=== PATIENT | female | born 1975 | race Caucasian/White ===

== ENCOUNTER 2017-01-01 15:52 | Emergency (ER) | payer OTHER ==
[2017-01-01 16:10] VITALS: BP 106/73; PULSE 68; RESP 18; TEMP 98.3; O2SAT 100
--- NOTE | 2017-01-01 17:27 | CT ---
PROCEDURE: CT HEAD WITHOUT CONTRAST. HISTORY: trauma COMPARISON: None available. TECHNIQUE: Axial computed tomography images were obtained through the head/brain without intravenous contrast. Radiation dose: Total exam DLP = 832.76 mGy-cm. This CT exam was performed using one or more of the following dose reduction techniques: Automated exposure control, adjustment of the mA and/or kV according to patient size, and/or use of iterative reconstruction technique. FINDINGS: HEMORRHAGE: No intracranial hemorrhage. BRAIN: No mass effect or edema. No atrophy or chronic microvascular ischemic changes. VENTRICLES: No hydrocephalus. CALVARIUM: Unremarkable. PARANASAL SINUSES: Unremarkable as visualized. No significant inflammatory changes. MASTOID AIR CELLS: Unremarkable as visualized. No inflammatory changes. OTHER FINDINGS: None. IMPRESSION: No acute intracranial pathology identified.
--- NOTE | 2017-01-01 17:42 | RAD ---
PROCEDURE: Radiographs of the Lumbar Spine. HISTORY: trauma COMPARISON: None available. FINDINGS: BONES: Alignment appears satisfactory. No listhesis. No acute displaced fracture identified. DISC SPACES: Unremarkable. OTHER FINDINGS: None. IMPRESSION: No acute displaced fracture or subluxation identified.
--- NOTE | 2017-01-01 17:49 | ED PDOC ---
HPI: Back Time Seen by Provider: 01/01/17 16:31 Chief Complaint (Nursing): Back Pain Chief Complaint (Provider): Back Pain History Per: Patient History/Exam Limitations: no limitations Onset/Duration Of Symptoms: Days (x1) Additional Complaint(s): Amanda Rm, 41 year old female presents to the ED on 01/01/17 after falling 1 day prior to arrival. The patient states that she slipped and fell, and then landed in a sitting position, falling on her back. The patient is uncertain if she hit her head and lost consciousness for "2 seconds". She currently complains of non-radiating neck pain as well as upper and lower back pain. Past Medical History Reviewed: Historical Data, Nursing Documentation, Vital Signs Vital Signs: Last Vital Signs Temp 98.3 F 01/01/17 16:08 Pulse 68 01/01/17 16:08 Resp 18 01/01/17 16:08 BP 106/73 01/01/17 16:08 Pulse Ox 100 01/01/17 16:08 - Medical History PMH: No Chronic Diseases - Family History Family History: States: Unknown Family Hx - Home Medications Home Medications: Ambulatory Orders Medication Instructions Recorded Dicyclomine [Bentyl] 20 mg PO BID #14 tab 09/13/15 Ondansetron [Zofran] 4 mg PO Q8H #24 tab 09/13/15 - Allergies Allergies/Adverse Reactions: Allergies Allergy/AdvReac Type Severity Reaction Status Date / Time No Known Allergies Allergy Verified 09/13/15 16:40 Review of Systems Musculoskeletal: Positive for: Neck Pain, Back Pain (upper and lower) Physical Exam - Reviewed Nursing Documentation Reviewed: Yes Vital Signs Reviewed: Yes - Physical Exam Appears: Positive for: Non-toxic, No Acute Distress Head Exam: Positive for: ATRAUMATIC, NORMOCEPHALIC Skin: Positive for: Normal Color, Warm, Dry Eye Exam: Positive for: Normal appearance ENT: Positive for: Normal ENT Inspection Neck: Positive for: Normal Cardiovascular/Chest: Positive for: Regular Rate, Rhythm, Chest Non Tender Respiratory: Positive for: Normal Breath Sounds. Negative for: Respiratory Distress Gastrointestinal/Abdominal: Positive for: Normal Exam, Soft. Negative for: Tenderness Back: Positive for: Normal Inspection Extremity: Positive for: Normal ROM. Negative for: Deformity Neurologic/Psych: Positive for: Alert, Oriented (x3) - ECG O2 Sat by Pulse Oximetry: 100 (RA) Pulse Ox Interpretation: Normal - Radiology X-Ray: Interpreted by Me (C-spine, thoracic, LS spine x-ray) X-Ray Interpretation: No Acute Disease - Progress ED Course And Treament: CT head w/o contrast: negative Medical Decision Making Medical Decision Makin:31 Initial Impression: Headache Initial Plan: * CT Head w/o Contrast Stat * ED Urine (POC) Stat * Tylenol 325 mg tab 650 mg PO STAT * Cervical Spine AP & Lateral [RAD] Stat * Dorsal (Thoracic) Spine [RAD] Stat * LS Spine AP/LAT [RAD] Stat * Reevaluation Scribe Attestation: Documented by Mel Paez, acting as a scribe for Delgado Bautista PA-C. Provider Scribe Attestation: All medical record entries made by the Scribe were at my direction and personally dictated by me. I have reviewed the chart and agree that the record accurately reflects my personal performance of the history, physical exam, medical decision making, and the department course for this patient. I have also personally directed, reviewed, and agree with the discharge instructions and disposition. Disposition - Clinical Impression Clinical Impression: Head injury - Patient ED Disposition Is Patient to be Admitted: No - Disposition Referrals: Maximus Aquino MD [Staff Provider] - Disposition: Routine/Home Disposition Time: 18:25 Condition: STABLE Additional Instructions: Take Tylenol at home for headache. Drink plenty of fluids. Follow up with Dr. Aquino, nuerologist, for further evaluation. Instructions: Head Injury (ED), Back Pain (ED) Print Language: NICARAGUAN
--- NOTE | 2017-03-04 12:05 | RAD ---
HISTORY: MD ORDER No relevant clinical information provided. COMPARISON: No prior. FINDINGS: BONES: Alignment maintained. No fracture. DISC SPACES: Normal. SOFT TISSUES: Normal. OTHER FINDINGS: None. IMPRESSION: No significant or acute findings to account for/ related to the clinical presentation.
--- NOTE | 2017-03-04 12:06 | RAD ---
PROCEDURE: Cervical Spine Radiographs. HISTORY: Pain. No history of recent/ related trauma provided COMPARISON: None. FINDINGS: BONES: Alignment maintained. No fracture. Dens Intact. DISC SPACES: Normal. SOFT TISSUES: Normal. No prevertebral soft tissue swelling. OTHER FINDINGS: None. IMPRESSION: Unremarkable cervical spine radiographs
== END 2017-01-01 18:40 | disposition home or self-care (01) ==
LOC: H.ER 15:52
DX: S09.90XA Unspecified injury of head, initial encounter (principal); M54.2 Cervicalgia; M54.5 Low back pain; W01.0XXA Fall on same level from slipping, tripping and stumbling without subsequent striking against object, initial encounter; Y92.89 Other specified places as the place of occurrence of the external cause

== ENCOUNTER 2018-02-04 23:10 | Emergency (ER) | payer SELFPAY ==
[2018-02-04 23:24] VITALS: BP 129/79; PULSE 87; RESP 16; TEMP 98; O2SAT 100
--- NOTE | 2018-02-04 23:39 | ED PDOC ---
HPI: Female Pain Chief Complaint (Provider): Suprapubic pain, burning on urination History Per: Patient History/Exam Limitations: no limitations Onset/Duration Of Symptoms: Hrs Current Symptoms Are (Timing): Still Present Additional Complaint(s): 42 yo female with no medical problems presents with dysuria x 12 hours with suprapubic fullness. No radiation of "fullness"/pain. PT denies fever/chills. No N/V. Denies back pain. PT without similar in the past. <Kamryn Lynn - Last Filed: 02/04/18 23:37> <Melvin Glasgow - Last Filed: 02/07/18 19:28> Time Seen by Provider: 02/04/18 23:12 Chief Complaint (Nursing): Fever Past Medical History Reviewed: Historical Data, Nursing Documentation, Vital Signs Vital Signs: Last Vital Signs Temp 98.0 F 02/04/18 23:12 Pulse 87 02/04/18 23:12 Resp 16 02/04/18 23:12 BP 129/79 02/04/18 23:12 Pulse Ox 100 02/04/18 23:12 - Medical History PMH: No Chronic Diseases - Family History Family History: States: Unknown Family Hx <Kamryn Lynn - Last Filed: 02/04/18 23:37> Vital Signs: Last Vital Signs Temp 98.0 F 02/04/18 23:12 Pulse 87 02/04/18 23:55 Resp 16 02/04/18 23:12 BP 129/79 02/04/18 23:55 Pulse Ox 100 02/04/18 23:40 <Melvin Glasgow - Last Filed: 02/07/18 19:28> - Home Medications Home Medications: Ambulatory Orders Medication Instructions Recorded Dicyclomine [Bentyl] 20 mg PO BID #14 tab 09/13/15 Ondansetron [Zofran] 4 mg PO Q8H #24 tab 09/13/15 Ciprofloxacin [Cipro] 500 mg PO BID #10 tab 02/04/18 - Allergies Allergies/Adverse Reactions: Allergies Allergy/AdvReac Type Severity Reaction Status Date / Time No Known Allergies Allergy Verified 09/13/15 16:40 Review of Systems ROS Statement: Except As Marked, All Systems Reviewed And Found Negative Constitutional: Negative for: Fever, Chills Gastrointestinal: Negative for: Nausea, Vomiting Genitourinary Female: Positive for: Dysuria, Pelvic Pain <Kamryn Lynn - Last Filed: 02/04/18 23:37> Physical Exam - Reviewed Nursing Documentation Reviewed: Yes Vital Signs Reviewed: Yes - Physical Exam Appears: Positive for: Well, Non-toxic, No Acute Distress Head Exam: Positive for: ATRAUMATIC, NORMAL INSPECTION, NORMOCEPHALIC Skin: Positive for: Normal Color, Warm, DRY Eye Exam: Positive for: Normal appearance ENT: Positive for: Normal ENT Inspection Neck: Positive for: Normal, Painless ROM Cardiovascular/Chest: Positive for: Regular Rate, Rhythm Respiratory: Positive for: Normal Breath Sounds. Negative for: Accessory Muscle Use, Respiratory Distress Gastrointestinal/Abdominal: Positive for: Normal Exam, Soft. Negative for: Tenderness Back: Positive for: Normal Inspection. Negative for: L CVA Tenderness, R CVA Tenderness Extremity: Positive for: Normal ROM Neurologic/Psych: Positive for: Alert, Oriented <Kamryn Lynn - Last Filed: 02/04/18 23:37> - ECG O2 Sat by Pulse Oximetry: 100 <Kamryn Lynn - Last Filed: 02/04/18 23:37> Medical Decision Making Medical Decision Making: (+) leuks, (+) nitrites on urine dip <Kamryn Lynn - Last Filed: 02/04/18 23:37> Disposition - Patient ED Disposition Is Patient to be Admitted: No Counseled Patient/Family Regarding: Diagnosis, Need For Followup, Rx Given - Disposition Disposition: Routine/Home Disposition Time: 23:37 <Kamryn Lynn - Last Filed: 02/04/18 23:37> <Melvin Glasgow - Last Filed: 02/07/18 19:28> - Clinical Impression Clinical Impression: UTI (urinary tract infection) - Disposition Condition: GOOD Prescriptions: Ciprofloxacin [Cipro] 500 mg PO BID #10 tab Instructions: Urinary Tract Infections in Adults Forms: [employer] (Telugu)
[2018-02-04 23:58] LABS: SQUAMOUS EPITHIAL 3 /hpf (0-5); URINE BACTERIA OCC (<OCC); URINE BILIRUBIN NEGATIVE (NEGATIVE); URINE BLOOD LARGE (NEGATIVE); URINE CLARITY TURBID (Clear); URINE COLOR YELLOW (YELLOW); URINE GLUCOSE (UA) NEG (Normal); URINE LEUKOCYTE ESTERASE LARGE Leu/uL (Negative); URINE PROTEIN >=500 mg/dL (NEGATIVE); URINE UROBILINOGEN 0.2-1.0 mg/dL (0.2-1.0); WBC CLUMPS MANY /hpf
== END 2018-02-04 23:55 | disposition home or self-care (01) ==
LOC: H.ER 23:10
DX: N39.0 Urinary tract infection, site not specified (principal)

== ENCOUNTER 2018-03-20 17:44 | Emergency (ER) | payer SELFPAY ==
[2018-03-20 17:50] VITALS: BP 130/82; PULSE 78; RESP 18; TEMP 98; O2SAT 100
[2018-03-20] MEDS ORDERED: Naproxen 500 MG TAB PO ONE ×2 (18:01→18:32)
--- NOTE | 2018-03-20 19:32 | ED PDOC ---
HPI: Trauma/Fall - HPI Time Seen by Provider: 03/20/18 17:51 Chief Complaint (Nursing): Trauma Chief Complaint (Provider): Trauma History Per: Patient History/Exam Limitations: no limitations Onset/Duration Of Symptoms: Days Additional Complaint(s): 42 year old female presents to ED complaining of injury to the right 4th toe, neck and lower back 2 weeks ago. States she tripped and fell. Denies head injury , loss of consciousness, numbness or tingling. PMD: No Family Provider Past Medical History Reviewed: Historical Data, Nursing Documentation, Vital Signs Vital Signs: Last Vital Signs Temp 98.0 F 03/20/18 17:48 Pulse 78 03/20/18 17:48 Resp 18 03/20/18 17:48 BP 130/82 03/20/18 17:48 Pulse Ox 100 03/20/18 17:48 - Medical History PMH: No Chronic Diseases - Surgical History Surgical History: No Surg Hx - Family History Family History: States: Unknown Family Hx - Social History Current smoker - smoking cessation education provided: No Drugs: Denies - Home Medications Home Medications: Ambulatory Orders Medication Instructions Recorded Dicyclomine [Bentyl] 20 mg PO BID #14 tab 09/13/15 Ondansetron [Zofran] 4 mg PO Q8H #24 tab 09/13/15 Ciprofloxacin [Cipro] 500 mg PO BID #10 tab 02/04/18 Naproxen [Naprosyn] 500 mg PO BID PRN #10 tab 03/20/18 - Allergies Allergies/Adverse Reactions: Allergies Allergy/AdvReac Type Severity Reaction Status Date / Time No Known Allergies Allergy Verified 03/20/18 17:48 Review of Systems ROS Statement: Except As Marked, All Systems Reviewed And Found Negative Musculoskeletal: Positive for: Neck Pain, Back Pain, Foot Pain (right 4th toe) Neurological: Negative for: Headache, Other (LOC, head injury) Physical Exam - Reviewed Nursing Documentation Reviewed: Yes Vital Signs Reviewed: Yes - Physical Exam Appears: Positive for: Non-toxic, No Acute Distress Head Exam: Positive for: ATRAUMATIC, NORMAL INSPECTION, NORMOCEPHALIC Skin: Positive for: Normal Color, Warm, Dry Eye Exam: Positive for: Normal appearance Pulses-Dorsalis Pedis (R): 2+ Back: Positive for: Normal Inspection, Other (bilateral paraspinal tenderness, paracervical tenderness, no midline tenderness). Negative for: L CVA Tenderness , R CVA Tenderness Extremity: Positive for: Normal ROM, Tenderness (mild, right 4th toe), Capillary Refill (less than 2 seconds). Negative for: Swelling Neurologic/Psych: Positive for: Alert, Oriented (x3) - ECG O2 Sat by Pulse Oximetry: 100 (RA) Pulse Ox Interpretation: Normal - Progress ED Course And Treament: C-spine, LS spine x-ray: no fx R 4th toe: non-displaced fx at distal phalanx without displacement or dislocation. Pt. evaluated by [facility] podiatry resident, in ED who eva taped pt. and made f/u arrangements with podiatry clinic. Medical Decision Making Medical Decision Making: Time: 1800 Initial Impression: neck pain, back pain, right toe injury Initial Plan: -- ED Urine --Naproxen 500mg --Cervical Spine AP and Lateral [RAD] --Food Right 4th Digit [RAD] --LS Spine AP/LAT [RAD] Scribe Attestation: Documented by Saida Nogueira, acting as a scribe for Delgado Bautista PA-C. Provider Scribe Attestation: All medical record entries made by the Scribe were at my direction and personally dictated by me. I have reviewed the chart and agree that the record accurately reflects my personal performance of the history, physical exam, medical decision making, and the department course for this patient. I have also personally directed, reviewed, and agree with the discharge instructions and disposition. Disposition - Clinical Impression Clinical Impression: Toe fracture, Cervical sprain, Low back pain - Patient ED Disposition Is Patient to be Admitted: No - Disposition Referrals: Podiatry Clinic [Outside] Disposition: Routine/Home Disposition Time: 20:15 Condition: STABLE Additional Instructions: ARNOLDO LUCAS, thank you for letting us take care of you today. Your provider was Thuy Barnes MD and you were treated for BACK PAIN, RT TOE PAIN. The emergency medical care you received today was directed at your acute symptoms. If you were prescribed any medication, please fill it and take as directed. It may take several days for your symptoms to resolve. Return to the Emergency Department if your symptoms worsen, do not improve, or if you have any other problems. Please contact your doctor or call one of the physicians/clinics you have been referred to that are listed on the Patient Visit Information form that is included in your discharge packet. Bring any paperwork you were given at discharge with you along with any medications you are taking to your follow up visit. Our treatment cannot replace ongoing medical care by a primary care provider outside of the emergency department. Thank you for allowing the [facility] team to be part of your care today. If you had an X-Ray or CT scan: A Radiologist will review the ED reading if any change in treatment is needed we will contact you. If you had a blood, urine, or wound culture: It will take several days for the results, if any change in treatment is needed we will contact you. If you had an STI test: It will take 48 hours for the results. Please call after 1 week if you have not heard back. Prescriptions: Naproxen [Naprosyn] 500 mg PO BID PRN #10 tab PRN Reason: Pain Instructions: Low Back Pain (DC), Toe Fracture (DC), Cervical Muscle Strain ( DC) Forms: [employer] (Niuean) Print Language: BURUNDIAN
--- NOTE | 2018-03-20 19:35 | CP.PCM.CON ---
History of Present Illness - History of Present Illness History of Present Illness: Podiatry Consult Note - Dr. Yi 42F unremarkable PMHx seen and examined in ED regarding pain in right 4th digit. Patient states approximately 2 weeks ago she tripped and fell, injuring her 4th toe. Patient states she has been able to walk since the injury, though with difficulty. Patient c/o persistent swelling in left 4th digit. Admits to soaking and massaging her digit as prior treatment though has not found relief of symptoms. Denies N/V/F/D/C/SOB. Review of Systems - Review of Systems All systems: reviewed and no additional remarkable complaints except (as per HPI ) Past Patient History - Infectious Disease Hx of Infectious Diseases: None - Past Social History Drugs: Denies - PSYCHIATRIC Hx Substance Use: No - SURGICAL HISTORY Hx Surgeries: No - ANESTHESIA Hx Anesthesia: No Meds Home Medications: Home Medication List Medication Instructions Recorded Confirmed Type Naproxen [Naprosyn] 500 mg PO BID PRN #10 tab 03/20/18 Rx Allergies/Adverse Reactions: Allergies Allergy/AdvReac Type Severity Reaction Status Date / Time No Known Allergies Allergy Verified 03/20/18 17:48 Physical Exam - Constitutional Appears: Well, Non-toxic, No Acute Distress - Extremities Exam Additional comments: RLE focused physical exam: VASC: DP/PT pulses palpable 2/4. CFT <3 seconds to all digits x5. Temperature gradient cool to cool. Nonpitting edema noted to 4th digit. Pedal hair appreciated. NEURO: Gross sensation intact. DERM: No open lesions present. No erythema noted. ORTHO: Pain on palpation 4th digit, pain upon ROM 4th digit DIPJ, PIPJ. No pain upon 4th MPJ. Digital ROM present. - Neurological Exam Neurological exam: Alert, Oriented x3 - Psychiatric Exam Psychiatric exam: Normal Affect, Normal Mood Results - Vital Signs Recent Vital Signs: Last Vital Signs Temp 98.0 F 03/20/18 17:48 Pulse 78 03/20/18 17:48 Resp 18 03/20/18 17:48 BP 130/82 03/20/18 17:48 Pulse Ox 100 03/20/18 19:33 Assessment & Plan - Assessment and Plan (Free Text) Assessment: 42F with incomplete 4th middle phalanx fracture Plan: Patient seen and examined Discussed with attending, Dr. Yi Right foot XR reviewed: incomplete fracture of 4th middle phalanx 4th and 3rd digits eva splinted with coban Surgical shoe dispensed - patient to be WBAT in surgical shoe Advised patient to keep dressing clean/dry/intact until follow up appointment Recommend RICE therapy Advised patient to take OTC extra strength Tylenol PRN pain Patient to follow up in Dr. Yi's office or podiatry clinic in 1 week Stable for dc per podiatry Thank you for the consult
--- NOTE | 2018-03-21 15:59 | RAD ---
Date of service: 03/20/2018 PROCEDURE: Radiographs of the Lumbar Spine. HISTORY: trauma COMPARISON: No prior. FINDINGS: BONES: Normal alignment. No listhesis. No fracture. DISC SPACES: Unremarkable. OTHER FINDINGS: None. IMPRESSION: Unremarkable radiographs of the lumbar spine.
--- NOTE | 2018-03-21 16:00 | RAD ---
Date of service: 03/20/2018 PROCEDURE: Cervical Spine Radiographs. HISTORY: Pain. COMPARISON: None. FINDINGS: BONES: Alignment maintained. No fracture. Dens Intact. DISC SPACES: Normal. SOFT TISSUES: Normal. No prevertebral soft tissue swelling. OTHER FINDINGS: None. IMPRESSION: Normal cervical spine radiographs
--- NOTE | 2018-03-21 16:07 | RAD ---
Date of service: 03/20/2018 PROCEDURE: Right foot HISTORY: trauma COMPARISON: Not available TECHNIQUE: Three views of right foot FINDINGS: Nondisplaced oblique fracture 4th middle phalanx, likely intra-articular golfing the proximal interphalangeal joint. No other fracture identified. Remaining joint spaces and articular surfaces are preserved. IMPRESSION: Nondisplaced oblique fracture 4th middle phalanx.
== END 2018-03-20 20:32 | disposition home or self-care (01) ==
LOC: H.ER 17:44
DX: S92.524A Nondisplaced fracture of middle phalanx of right lesser toe(s), initial encounter for closed fracture (principal); S13.4XXA Sprain of ligaments of cervical spine, initial encounter; M54.5 Low back pain; W01.0XXA Fall on same level from slipping, tripping and stumbling without subsequent striking against object, initial encounter

== ENCOUNTER 2018-05-10 20:15 | Emergency (ER) | payer OTHER ==
[2018-05-10 21:04] VITALS: BP 111/79; PULSE 85; RESP 16; TEMP 98.6; O2SAT 100
--- NOTE | 2018-05-10 21:19 | ED PDOC ---
HPI: Female Pain Time Seen by Provider: 05/10/18 21:05 Chief Complaint (Nursing): Female Genitourinary Chief Complaint (Provider): Dysuria History Per: Patient History/Exam Limitations: no limitations Onset/Duration Of Symptoms: Hrs (x6) Current Symptoms Are (Timing): Still Present Additional Complaint(s): Amanda Rm, a 42 year old female with past medical history of UTI, presents to the emergency department with dysuria onset 1500 today. Patient reports blood in urine. She states symptoms are similar to those she had with previous UTI, last one being 4 months ago. She has not taken medication. Patient denies frequency, fever, chills, vomiting, back pain. Last menstrual period was May 30. PMD: Steven Panda Past Medical History Reviewed: Historical Data, Nursing Documentation, Vital Signs Vital Signs: Last Vital Signs Temp 98.6 F 05/10/18 21:02 Pulse 85 05/10/18 21:02 Resp 16 05/10/18 21:02 BP 111/79 05/10/18 21:02 Pulse Ox 100 05/10/18 21:02 - Medical History PMH: No Chronic Diseases - Surgical History Surgical History: No Surg Hx - Family History Family History: States: Unknown Family Hx - Social History Current smoker - smoking cessation education provided: No Alcohol: None - Home Medications Home Medications: Ambulatory Orders Medication Instructions Recorded Dicyclomine [Bentyl] 20 mg PO BID #14 tab 09/13/15 Ondansetron [Zofran] 4 mg PO Q8H #24 tab 09/13/15 Ciprofloxacin [Cipro] 500 mg PO BID #10 tab 02/04/18 Naproxen [Naprosyn] 500 mg PO BID PRN #10 tab 03/20/18 Nitrofurantoin Macrocrystals 100 mg PO BID #14 cap 05/10/18 [Macrobid] Phenazopyridine [Pyridium] 200 mg PO BID PRN #4 tab 05/10/18 - Allergies Allergies/Adverse Reactions: Allergies Allergy/AdvReac Type Severity Reaction Status Date / Time No Known Allergies Allergy Verified 05/10/18 21:01 Review of Systems ROS Statement: Except As Marked, All Systems Reviewed And Found Negative Constitutional: Negative for: Fever, Chills Gastrointestinal: Negative for: Vomiting Genitourinary Female: Positive for: Dysuria, Hematuria. Negative for: Frequency Physical Exam - Reviewed Nursing Documentation Reviewed: Yes Vital Signs Reviewed: Yes - Physical Exam Comments: GENERAL APPEARANCE: Patient is awake, alert, oriented x 3, in no acute distress. SKIN: Warm, dry; (-) cyanosis. ENMT: Mucous membranes moist. Airway patent: (-) stridor. NECK: Supple, FROM CHEST AND RESPIRATORY: (-) wheezing; (-) rales, (-) rhonchi, (-) rub; breath sounds equal bilaterally. HEART AND CARDIOVASCULAR: (-) irregularity ABDOMEN AND GI: Soft; (+) mild suprapubic tenderness. (-) distention (-) guarding (-) CVA tenderness EXTREMITIES: (-) deformity NEURO AND PSYCH: Mental status as above; (-) focal findings. Gait: steady. Speech: clear. - ECG O2 Sat by Pulse Oximetry: 100 (RA) Pulse Ox Interpretation: Normal Medical Decision Making Medical Decision Making: Time: 21:05 Impression: dysuria, likely UTI Initial Plan: -- test --Pyridium 200 mg PO --Urine culture --Urinalysis Upreg: Negative 2225 U/A reviewed (+) UTI Macrobid 100mg PO ordered. 2255 On re-evaluation, patient reports improvement of symptoms. On exam, patient remains AAOx3, in no acute distress. On exam, neck is supple, lungs CTA, cardiac RRR, abdomen is soft and non-distended, neuro exam shows no focal findings. VSS, stable for discharge. Diagnostic results d/w the patient in great detail. Dx of UTI, dysuria d/w the patient. Based on history, exam and diagnostic results plan will be for discharge and outpatient follow up. Advised to follow up with primary care physician / urology in 1-2 days without fail. Advised to take medication as prescribed. Return to the emergency room at any time for any new or worsening symptoms. Patient states she fully agrees with and understands discharge instructions. States that she agrees with the plan and disposition. Verbalized and repeated discharge instructions and plan. I have given the patient opportunity to ask any additional questions. Scribe Attestation: Documented by Leonor Villa, acting as a scribe for Reyna Dial PA-C. Provider Scribe Attestation: All medical record entries made by the Scribe were at my direction and personally dictated by me. I have reviewed the chart and agree that the record accurately reflects my personal performance of the history, physical exam, medical decision making, and the department course for this patient. I have also personally directed, reviewed, and agree with the discharge instructions and disposition. Disposition - Clinical Impression Clinical Impression: UTI (urinary tract infection), Dysuria - Patient ED Disposition Is Patient to be Admitted: No Counseled Patient/Family Regarding: Studies Performed, Diagnosis, Need For Followup, Rx Given - Disposition Referrals: Clint Mosquera Jr., MD [Staff Provider] - [facility] [Outside] Disposition: Routine/Home Disposition Time: 22:58 Condition: STABLE Additional Instructions: The emergency medical care you received today was directed at your acute symptoms. If you were prescribed any medication, please fill it and take as directed. It may take several days for your symptoms to resolve. Return to the Emergency Department if your symptoms worsen, do not improve, or if you have any other problems. Please contact your doctor in 2 days for re-evaluation and follow up / or call one of the physicians/clinics you have been referred to that are listed on the Patient Visit Information form that is included in your discharge packet. Bring any paperwork you were given at discharge with you along with any medications you are taking to your follow up visit. Our treatment cannot replace ongoing medical care by a primary care provider (PCP) outside of the emergency department. Prescriptions: Nitrofurantoin Macrocrystals [Macrobid] 100 mg PO BID #14 cap Phenazopyridine [Pyridium] 200 mg PO BID PRN #4 tab PRN Reason: urinary discomfort Instructions: Urinary Tract Infections in Adults, Dysuria, Adult (DC) Forms: [facility] (Slovak) Print Language: SLOVAK - POA Present On Arrival: None Results - Lab Results Lab Results: 05/10/18 21:57 Urine Color Janette Urine Clarity Turbid Urine pH 5.0 Ur Specific [place] 1.023 Urine Protein >=500 Urine Glucose (UA) Neg Urine Ketones Negative Urine Blood Moderate Urine Nitrate Positive H Urine Bilirubin Negative Urine Urobilinogen 0.2-1.0 Ur Leukocyte Esterase Mod Urine RBC (Auto) 8 H Urine Microscopic WBC 106 H Ur Squamous Epith Cells 3 Urine Bacteria Mod H
[2018-05-10 22:06] LABS: SQUAMOUS EPITHIAL 3 /hpf (0-5); URINE BACTERIA MOD (<OCC); URINE BILIRUBIN NEGATIVE (NEGATIVE); URINE BLOOD MODERATE (NEGATIVE); URINE CLARITY TURBID (Clear); URINE COLOR AMBER (YELLOW); URINE GLUCOSE (UA) NEG (Normal); URINE LEUKOCYTE ESTERASE MOD Leu/uL (Negative); URINE PROTEIN >=500 mg/dL (NEGATIVE); URINE UROBILINOGEN 0.2-1.0 mg/dL (0.2-1.0)
== END 2018-05-10 23:07 | disposition home or self-care (01) ==
LOC: H.ER 20:15
DX: N39.0 Urinary tract infection, site not specified (principal); R30.0 Dysuria; Z87.440 Personal history of urinary (tract) infections

== ENCOUNTER 2018-07-25 13:19 | Emergency (ER) | payer OTHER ==
[2018-07-25 13:33] VITALS: RESP 18; O2SAT 100
--- NOTE | 2018-07-25 14:01 | ED PDOC ---
HPI: Chest Pain Time Seen by Provider: 07/25/18 13:35 Chief Complaint (Nursing): Chest Pain Chief Complaint (Provider): Chest pain History Per: Patient History/Exam Limitations: no limitations Onset/Duration Of Symptoms: Days (last night) Additional Complaint(s): Amanda Rm is a 42 year old female, with no significant past medical history, who presents to the emergency department complaining of an intermittent left sided chest pain and left arm pain onset for x2 days. Patient states pain worsens with deep breaths and movement. She reports similar pain in the past believes it's from the cold weather. She took Advil with relief of pain but did not take any medications today. She denies any fever, chills, shortness of breath, injuries or trauma, nausea, vomit, diarrhea, recent travel, leg pain or swelling. No further medical complaints. She is not on control. PMD: None provided. Past Medical History Reviewed: Historical Data, Nursing Documentation, Vital Signs Vital Signs: Last Vital Signs Temp 97.8 F 07/25/18 13:31 Pulse 70 07/25/18 13:31 Resp 18 07/25/18 13:31 BP 147/90 07/25/18 13:31 Pulse Ox 100 07/25/18 13:31 - Medical History PMH: No Chronic Diseases - Surgical History Surgical History: No Surg Hx - Family History Family History: States: Unknown Family Hx - Social History Current smoker - smoking cessation education provided: No Alcohol: None Drugs: Denies - Home Medications Home Medications: Ambulatory Orders Medication Instructions Recorded Dicyclomine [Bentyl] 20 mg PO BID #14 tab 09/13/15 Ondansetron [Zofran] 4 mg PO Q8H #24 tab 09/13/15 Ciprofloxacin [Cipro] 500 mg PO BID #10 tab 02/04/18 Naproxen [Naprosyn] 500 mg PO BID PRN #10 tab 03/20/18 Nitrofurantoin Macrocrystals 100 mg PO BID #14 cap 05/10/18 [Macrobid] Phenazopyridine [Pyridium] 200 mg PO BID PRN #4 tab 05/10/18 Naproxen [Naprosyn] 500 mg PO BID PRN #15 tablet 07/25/18 - Allergies Allergies/Adverse Reactions: Allergies Allergy/AdvReac Type Severity Reaction Status Date / Time No Known Allergies Allergy Verified 05/10/18 21:01 Wells Criteria for PE - Wells Criteria for Pulmonary Embolism Clinical Signs and Symptoms of DVT: No P.E is #1 Diagnosis, or Equally Likely: No Heart Rate >100: No Immobilization at least 3 days;Surgery previous 4 weeks: No Previous, objectively diagnosed PE or DVT: No Hemoptysis: No Malignancy w/treatment within 6 months, or palliative: No Total Score: 0 Review of Systems ROS Statement: Except As Marked, All Systems Reviewed And Found Negative Constitutional: Negative for: Fever, Chills Cardiovascular: Positive for: Chest Pain. Negative for: Edema Respiratory: Negative for: Shortness of Breath Gastrointestinal: Negative for: Nausea, Vomiting, Diarrhea Musculoskeletal: Positive for: Arm Pain (left). Negative for: Leg Pain Physical Exam - Reviewed Nursing Documentation Reviewed: Yes Vital Signs Reviewed: Yes - Physical Exam Appears: Positive for: No Acute Distress (comfortable) Head Exam: Positive for: ATRAUMATIC, NORMAL INSPECTION, NORMOCEPHALIC Skin: Positive for: Normal Color, Warm, Dry Eye Exam: Positive for: Normal appearance, EOMI, PERRL Neck: Positive for: Normal, Painless ROM, Supple Cardiovascular/Chest: Positive for: Regular Rate, Rhythm, Other (Tenderness to medical left breast. Pain is reproducible). Negative for: Murmur Respiratory: Positive for: Normal Breath Sounds. Negative for: Respiratory Distress Gastrointestinal/Abdominal: Positive for: Normal Exam, Soft. Negative for: Tenderness, Guarding, Rebound Back: Positive for: Normal Inspection. Negative for: L CVA Tenderness, R CVA Tenderness, Vertebral Tenderness Extremity: Positive for: Normal ROM (upper and lower extremities). Negative for: Deformity, Swelling Neurologic/Psych: Positive for: Alert, Oriented. Negative for: Motor/Sensory Deficits - Laboratory Results Result Diagrams: 07/25/18 14:00 07/25/18 14:00 - ECG O2 Sat by Pulse Oximetry: 100 (RA) Pulse Ox Interpretation: Normal Medical Decision Making Medical Decision Making: Time: 13:35 Initial Impression: chest pain Initial Plan: --EKG --CMP --Troponin I --Urine --Urine dipstick --CBC w/ differential --D Dimer --PTT --PT --Chest two views (PA/LAT) [RAD] --Motrin tab 600 mg PO --Reevaluation EKG: Normal Sinus Rhythm @ 68bpm. No ST/T Changes. Accession No. 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 TECHNIQUE: Chest PA and lateral FINDINGS: LUNGS: No active pulmonary disease. Tiny nodular density seen in the left mid lung field could represent vessel on end artifact versus small granuloma PLEURA: No significant pleural effusion identified. No pneumothorax apparent. CARDIOVASCULAR: No aortic atherosclerotic calcification present. Normal cardiac size. No pulmonary vascular congestion. OSSEOUS STRUCTURES: Very minor multilevel degenerative spondylosis. VISUALIZED UPPER ABDOMEN: Normal. OTHER FINDINGS: None. IMPRESSION: No active disease. Scribe Attestation: Documented by Umair Villa, acting as a scribe for Rand Pratt MD. Provider Scribe Attestation: All medical record entries made by the Scribe were at my direction and personally dictated by me. I have reviewed the chart and agree that the record accurately reflects my personal performance of the history, physical exam, medical decision making, and the department course for this patient. I have also personally directed, reviewed, and agree with the discharge instructions and disposition. Disposition - Clinical Impression Clinical Impression: Chest wall pain, Chest pain - Disposition Referrals: [facility] [Outside] Disposition: Routine/Home Disposition Time: 17:08 Condition: IMPROVED Prescriptions: Naproxen [Naprosyn] 500 mg PO BID PRN #15 tablet PRN Reason: Pain, Moderate (4-7) Instructions: Costochondritis, Chest Pain Forms: [facility] [facility] (Burmese)
[2018-07-25 14:21] LABS: BASO # 0.1 K/uL (0.0-0.2); BASO % 0.8 % (0.0-2.0); EOS # 0.2 K/uL (0.0-0.7); EOS % 2.9 % (0.0-4.0); HEMOGLOBIN 9.9 g/dL (12.0-16.0); LYMPH % 29.8 % (20.0-40.0); MEAN CELL VOLUME 75.2 fl (81.0-99.0); MEAN CORPUSCULAR HEMOGLOBIN 23.7 pg (27.0-31.0); MEAN CORPUSCULAR HGB CONC 31.5 g/dL (33.0-37.0); MEAN PLATELET VOLUME 9.2 fl (7.2-11.7); MONO # 0.4 K/uL (0.0-0.8); MONO % 5.9 % (0.0-10.0); NEUT % 60.6 % (50.0-75.0); NRBC % 0.2 % (0.0-0.0); RBC 4.2 Mil/uL (3.80-5.20); RED CELL DISTRIBUTION WIDTH 17.9 % (11.5-14.5); WHITE BLOOD COUNT 6.6 K/uL (4.8-10.8)
[2018-07-25 14:45] LABS: PROTHROMBIN TIME 11.3 Seconds (9.8-13.1)
--- NOTE | 2018-07-25 14:45 | RAD ---
Date of service: 07/25/2018 HISTORY: L sided CP COMPARISON: No prior. TECHNIQUE: Chest PA and lateral FINDINGS: LUNGS: No active pulmonary disease. Tiny nodular density seen in the left mid lung field could represent vessel on end artifact versus small granuloma PLEURA: No significant pleural effusion identified. No pneumothorax apparent. CARDIOVASCULAR: No aortic atherosclerotic calcification present. Normal cardiac size. No pulmonary vascular congestion. OSSEOUS STRUCTURES: Very minor multilevel degenerative spondylosis. VISUALIZED UPPER ABDOMEN: Normal. OTHER FINDINGS: None. IMPRESSION: No active disease.
[2018-07-25 14:48] LABS: PARTIAL THROMBOPLASTIN TIME 26.1 Seconds (25.6-37.1)
[2018-07-25 15:02] LABS: ALB/GLOB RATIO 1.1 (1.0-2.1); ALBUMIN 4.4 g/dL (3.5-5.0); ALT/SGPT 25 U/L (9-52); AST/SGOT 27 U/L (14-36); BLOOD UREA NITROGEN 9 mg/dl (7-17); CALCIUM 9.2 mg/dL (8.4-10.2); GFR NON-AFRICAN AMERICAN > 60
[2018-07-25 15:31] LABS: D DIMER < 200 ng/mlDDU (0-230)
[2018-07-25] MEDS ORDERED: Oxycodone/Acetaminophen 5/325 mg Tab PO STA (15:47)
[2018-07-25] MEDS ORDERED: Oxycodone/Acetaminophen 5/325 mg Tab ONE (16:05)
[2018-07-25 17:25] VITALS: BP 115/72; PULSE 60; TEMP 97.9
--- NOTE | 2018-07-26 09:56 | CARD ---
APPROVED REPORT Date of service: 07/25/2018 EKG Measurement Heart [id number] <Conclusion> Normal sinus rhythm Normal ECG
== END 2018-07-25 17:27 | disposition home or self-care (01) ==
LOC: H.ER 13:19
DX: R07.89 Other chest pain (principal)